=== PATIENT | male | born 2000 | race Caucasian/White ===

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

== ENCOUNTER 2022-09-25 13:45 | Emergency (ER) | payer BC ==
[~2022-09-25] VITALS: Ht 188 cm; Wt 81.6 kg
[2022-09-25 14:10] VITALS: BP 118/70
[2022-09-25 14:46] LABS: BASOPHILS % (AUTO) 0.7 % (0.0-5.0); EOSINOPHILS % (AUTO) 2.4 % (0.0-8.0); HEMATOCRIT 42.8 % (42-54); LYMPHOCYTES % (AUTO) 25.6 % (21.0-51.0); MEAN CORPUSCULAR HEMOGLOBIN 29.8 pg (27.0-33.0); MEAN CORPUSCULAR VOLUME 85.1 fL (80-100); MONOCYTES % (AUTO) 6.7 % (3.0-13.0); NEUTROPHILS % (AUTO) 64.3 % (40.0-77.0); PLATELET COUNT (AUTO) 248 K/uL (130-400); RED BLOOD CELL COUNT(AUTO) 5.03 MIL/uL (4.50-6.20); RED CELL DISTRIBUTION WIDTH 13.6 % (11.0-15.5); WHITE BLOOD COUNT (AUTO) 7.5 K/uL (4.8-10.8)
[2022-09-25 14:53] LABS: POTASSIUM 4.2 mmol/L (3.5-5.1)
[2022-09-25 14:58] LABS: TOTAL PROTEIN, SERUM 6.9 g/dL (6.0-8.3)
[2022-09-25] MEDS ORDERED: DIPH-1242 PO (15:20)
[2022-09-25] MEDS ORDERED: DIPHENHYDRAMINE HCL 25 MG CAPSULE PO ONE (15:30)
== END 2022-09-25 15:42 | disposition home or self-care (01) ==
LOC: EDH 13:45
DX: G25.89 Other specified extrapyramidal and movement disorders (principal); K08.89 Other specified disorders of teeth and supporting structures; Z90.89 Acquired absence of other organs
CPT/HCPCS: 99283; 80053; 85025; 36415; Q0163